=== PATIENT | female | born 1960 | race Caucasian/White ===

== ENCOUNTER → 2016-04-30 | Outpatient (CLI) | payer OTHER ==
[~2016-04-30] MED LIST: ALLER-TEC10 MG PO; AMBIEN10 MG PO; B COMPLEX1 CA1 PO; BENADRYL25 MG PO; BENTYL20 MG PO; CARAFATE; CORTISONE25 MG PO; DEXILANT60 MG PO; FISH OIL 1,0001 CAP PO; FISH OIL 1,2001 EAC5; HALCION PO; HORMONE CREAM; HYDROCODON-ACE1 EAC7 PO; LEVAQUIN PO; LORTAB 7.5-5001 TAB PO; MELATONIN10 M1 PO; MULTI-VITAMIN1 EAC1 PO; NATURE-THROI81.25 MG PO; PERCOCET 7.5/321 TAB PO; PHENERGAN12.5 MG PO; PHENERGAN25 M1 PO; PRILOSEC PO; PROBIOTIC1 EAC3 PO; PROTONIX PO; PYRIDIUM100 MG PO; ULTRAM; WOMENS STOOL S100 MG PO
--- NOTE | ~2016-04-30 | CT2 ---
[facility] A Service of [facility] RADIOLOGY TEXT RESULTS PATIENT: ELIE MCCRARY LOCATION: [facility] : 56 UNIT #: [id number] AGE: [address]: Davin Lopez MD SEX: F ORDER DR: [id number] [facility] [address] [place], [place] [address] [id number] O MR#: [id number] Acc #: [id number] NAME: ELIE MCCRARY. : 1960 SEX: F STUDY DATE/TIME: 04/30/2016 9:48 UNIT: [facility] ROOM: STUDY DESCRIPTION: CT Abd and Pelv W Cont Attending Physician: Davin Lopez M.D. Referring Physician: Davin Lopez M.D. Ordering Physician: Davin Lopez M.D. Primary Care Physician: Ashlie Castorena M.D. MEDICAL IMAGING REPORT This report is preliminary unless electronic signature is present EXAM CT abdomen and pelvis with contrast INDICATION Generalized abdominal pain, vomiting, nausea for the past 10 days. PROCEDURE Contrast-enhanced CT of the abdomen and pelvis. 100 mL of Isovue-370. This CT exam was performed with one or more of the following radiation dose reduction techniques: automatic exposure control, adjustment of mA and/or kV according to patient size, and iterative reconstruction. COMPARISON 06/12/2015 FINDINGS ABDOMEN WITH CONTRAST: Included lung bases are clear. Liver enlarged measuring 20.2 cm. No liver mass on this single phase study. The spleen, adrenal glands, and pancreas are unremarkable. Previous cholecystectomy. Bowel loops are nondilated. There is a 1.6 cm cyst in the lower pole of the right kidney. Small parapelvic cyst lower pole left kidney. Changes from midline abdominal incision. There is a small fluid collection in the subcutaneous fat along the tract of the incision, it measures 3.7 cm. It contains no foci of air. PELVIS WITH CONTRAST: No pelvic mass or fluid. Previous hysterectomy. No aggressive-appearing bone lesion. IMPRESSION 1. No previous midline abdominal incision. There is a small collection [facility] A Service of [facility] RADIOLOGY TEXT RESULTS PATIENT: ELIE MCCRARY LOCATION: [facility] : 56 UNIT #: [id number] AGE: [address]: Davin Lopez MD SEX: F ORDER DR: in the subcutaneous tissues, along the tract of the incision measuring 3.7 cm. It probably represents a seroma. Abscess is not excluded but it contains no foci of air. Correlate with patient's current symptoms and physical examination. 2. Hepatomegaly. 3. Bilateral renal cysts. Dictated by... Carter Arroyo M.D. THIS IS AN ELECTRONICALLY VERIFIED REPORT Carter Arroyo M.D. at 05/01/2016 7:05 AM SHEA/carole TD: 04/30/2016 15:16 JOB #: [id number] MEDICAL IMAGING REPORT COPY
[2016-04-30 09:10] LABS: POC - CREATININE 0.81 mg/dL (0.44-1.03); POC - GFR >60.0 mL/min (>60)
== END | disposition home or self-care (01) ==
LOC: CCAT 07:53
PROVIDERS: Specialist
DX: R10.9 Unspecified abdominal pain (principal); R16.0 Hepatomegaly, not elsewhere classified; N28.1 Cyst of kidney, acquired
CPT/HCPCS: 74177; 82565; Q9967